=== PATIENT | male | born 1960 | race Caucasian/White ===

== ENCOUNTER 2020-07-05 12:47 | Observation (INO) | payer OTHER ==
[~2020-07-05] VITALS: Ht 190.5 cm; Wt 163.3 kg
[2020-07-05] MEDS ORDERED: AMLO10 PO (13:21)
[2020-07-05] MEDS ORDERED: Hytrin2 MG PO (13:21)
[2020-07-05] MEDS ORDERED: LEVSOD75 PO (13:22)
[2020-07-05] MEDS ORDERED: TRAZ100 PO (13:22)
[2020-07-05] MEDS ORDERED: ALLO100 PO (13:22)
[2020-07-05] MEDS ORDERED: GABA100 PO (13:23)
[2020-07-05] MEDS ORDERED: METO25ER PO (13:23)
[2020-07-05] MEDS ORDERED: ASMANEX HFA13 G4 INH (13:23)
[2020-07-05] MEDS ORDERED: STELARA90 MG/1 ML SC (13:24)
[2020-07-05] MEDS ORDERED: AMITRIPTYLINE100 MG PO (13:24)
[2020-07-05] MEDS ORDERED: HYDROCORTISONE30 GM PR (13:26)
[2020-07-05] MEDS ORDERED: Dicyclomine HCl10 MG PO (13:26)
[2020-07-05] MEDS ORDERED: ALBU90OI INH (13:27)
[2020-07-05] MEDS ORDERED: KETOCONAZOLE 2%30 GM TOP (13:27)
[2020-07-05 13:49] LABS: BASOPHILS ABSOLUTE AUTO 0.04 K/mm3 (0.00-0.23); BASOPHILS PERCENT AUTO 1 % (0-2); EOSINOPHILS ABSOLUTE AUTO 0.18 K/mm3 (0.00-0.68); EOSINOPHILS PERCENT AUTO 2 % (0-6); Hematocrit 51.3 % (37.0-53.0); IMMATURE GRAN ABSOLUTE AUTO 0.01 K/mm3 (0.00-0.10); IMMATURE GRAN PERCENT AUTO 0 % (0-1); LYMPHOCYTES ABSOLUTE AUTO 2.88 K/mm3 (0.84-5.20); LYMPHOCYTES PERCENT AUTO 37 % (21-46); MONOCYTES ABSOLUTE AUTO 0.73 K/mm3 (0.16-1.47); MONOCYTES PERCENT AUTO 9 % (4-13); Mean Corpuscular HGB 30.5 pg (26.0-34.0); Mean Corpuscular HGB Conc 33.1 g/dL (31.5-36.5); Mean Corpuscular Volume 92 fL (80-100); Mean Platelet Volume 9.1 fL (9.1-12.4); NEUTROPHILS ABSOLUTE AUTO 3.98 K/mm3 (1.96-9.15); NEUTROPHILS PERCENT AUTO 51 % (41-73); Platelet Count 235 K/mm3 (150-400); RDW Coefficient Variation 14.6 % (11.7-14.2); RDW Standard Deviation 49.5 fL (35.1-46.3); Red Blood Cell Count 5.57 M/mm3 (4.30-5.90); White Blood Cell Count 7.82 K/mm3 (4.00-11.30)
[2020-07-05 14:03] LABS: Alanine Aminotransfer (ALT/SGP 46 U/L (12-78); Albumin/Globulin Ratio 0.7 (0.8-1.8); Alk Phos 81 U/L (50-136); Anion Gap 6 mmol/L (6-16); Aspartate Aminotrans (AST/SGOT 32 U/L (12-37); Bilirubin, Total 0.6 mg/dL (0.1-1.0); Blood Urea Nitrogen 14 mg/dL (8-24); Bun/Creatinine Ratio 15.4 (12.0-20.0); CO2, Blood 28 mmol/L (21-32); Calcium, Blood 8.9 mg/dL (8.5-10.1); Chloride, Blood 104 mmol/L (98-108); Creatinine, Blood 0.91 mg/dL (0.60-1.20); Globulin, Blood 4.2 g/dL (2.2-4.0); Glomerular Filtration Rate >60 (60-); Glucose, Blood 74 mg/dL (70-99); Potassium, Blood 4.1 mmol/L (3.5-5.5); Sodium, Blood 138 mmol/L (136-145); Total Protein, Blood 7.2 g/dL (6.4-8.2)
[2020-07-05] MEDS ORDERED: TIZA4 PO (15:15)
[2020-07-05] MEDS ORDERED: ARTIFICIAL SALIVA PO (15:16)
--- NOTE | 2020-07-05 18:19 | NUR ---
SHIFT SUMMARY PATIENT ADMITTED FROM THE ER LATE THIS EVENING. PATIENT ALERT AND ORIENTED UPON ARRIVAL. PATIENT UP INDEPENDENTLY FROM THE GURNEY TO THE BED. PATIENT HAD 1 BM SHORTLY AFTER ARRIVAL TO THE UNIT. BM CONTAINED APPROXIMATELY 30 ML OF BLOOD. PATIENT ORIENTED TO THE ROOM, ADMISSION ASSESSMENT COMPLETE. PATIENT PROVIDED WITH DINNER, CURRENTLY SITTING UP IN BED EATING.
[2020-07-05 18:34] LABS: C DIFFICILE DNA Formed (Negative)
--- NOTE | 2020-07-05 23:06 | NUR ---
AWAKE AT SHIFT COMMENCE. VOICED PAIN AND TYLENOL WASNT EFFECTIVE, LEVEL DESIGNER NOTIFIED AND ULTRAM ORDERED AND GIVEN. RESTING QUIETLY AT THIS TIME. CALL LIGHT IN REACH. IVF INFUSING - SEE MAR FOR DETAILS.
--- NOTE | 2020-07-06 03:25 | NUR ---
SHIFT SUMMARY AWAKE AT INTERVALS WITH ABD DISCOMFORT. ANALGESICS ADMINISTERED - SEE MAR FOR DETAILS. IVF INFUSING. HAD 2 FORMED STOOLS, NOTE APPARENT BLOOD ON THEM. ISOLATION PRECAUTIONS MAINTAINED UNTIL C DIFF RULED OUT. CURRENTLY RESTING QUIETLY. CALL LIGHT IN REACH
[2020-07-06 05:17] LABS: BASOPHILS ABSOLUTE AUTO 0.01 K/mm3 (0.00-0.23); BASOPHILS PERCENT AUTO 0 % (0-2); EOSINOPHILS PERCENT AUTO 0 % (0-6); Hematocrit 49.9 % (37.0-53.0); Hemoglobin 16.9 g/dL (13.5-17.5); IMMATURE GRAN ABSOLUTE AUTO 0.01 K/mm3 (0.00-0.10); IMMATURE GRAN PERCENT AUTO 0 % (0-1); LYMPHOCYTES ABSOLUTE AUTO 0.88 K/mm3 (0.84-5.20); LYMPHOCYTES PERCENT AUTO 12 % (21-46); MONOCYTES ABSOLUTE AUTO 0.09 K/mm3 (0.16-1.47); MONOCYTES PERCENT AUTO 1 % (4-13); Mean Corpuscular HGB 30.6 pg (26.0-34.0); Mean Corpuscular HGB Conc 33.9 g/dL (31.5-36.5); Mean Corpuscular Volume 90 fL (80-100); Mean Platelet Volume 9.1 fL (9.1-12.4); NEUTROPHILS ABSOLUTE AUTO 6.21 K/mm3 (1.96-9.15); NEUTROPHILS PERCENT AUTO 86 % (41-73); Platelet Count 255 K/mm3 (150-400); RDW Coefficient Variation 14.3 % (11.7-14.2); RDW Standard Deviation 47.6 fL (35.1-46.3); Red Blood Cell Count 5.53 M/mm3 (4.30-5.90)
[2020-07-06 05:33] LABS: Anion Gap 7 mmol/L (6-16); Blood Urea Nitrogen 11 mg/dL (8-24); Bun/Creatinine Ratio 14.3 (12.0-20.0); CO2, Blood 25 mmol/L (21-32); Calcium, Blood 8.6 mg/dL (8.5-10.1); Chloride, Blood 107 mmol/L (98-108); Creatinine, Blood 0.77 mg/dL (0.60-1.20); Glomerular Filtration Rate >60 (60-); Glucose, Blood 131 mg/dL (70-99); Potassium, Blood 3.9 mmol/L (3.5-5.5); Sodium, Blood 139 mmol/L (136-145)
--- NOTE | 2020-07-06 08:34 | NUR ---
CALLED DR SANTOS- PT STOOLS HAVE ALL BEEN FORMED. CALLED DR SANTOS ORDER RECIEVED TO DC R/O C-DIFF. PT BECOMES TERRIBLY ILL WHEN HE HAS GOLYTELY WILL CONTACT DR RAI FOR ALTERNATE ORDER.
--- NOTE | 2020-07-06 08:38 | NUR ---
CALLED DR RAI ABOUT BOWEL PREP LEFT MESSAGE AWAITING A CALL BACK.
--- NOTE | 2020-07-06 08:58 | NUR ---
CALLED DAY SURGERY RN, DR RAI IN A PROCEDURE WHEN HE IS DONE SHE WILL UPDATE HIM ON THE PT INABILITY TO TAKE GOLYTELY, AND THE NEED FOR ALTERNATE BOWEL PREP.
--- NOTE | 2020-07-06 09:03 | NUR ---
RECIEVED A CALL FROM DR RAI- RUPA FOR SUREPREP PLACED, CALLED [facility] KASANDRA NOT READY YET. WILL ADMINISTER ONCE VERIFIED AND AVAILABLE.
--- NOTE | 2020-07-06 09:07 | NUR ---
CALLED DR [facility].
[2020-07-06 12:51] LABS: Influenza A, PCR NEGATIVE (NEGATIVE); Influenza B, PCR NEGATIVE (NEGATIVE); Resp Syncytial Virus, PCR NEGATIVE (NEGATIVE); SARS-Cov-2 (COVID-19) PCR, MMC NEGATIVE (NEGATIVE)
--- NOTE | 2020-07-06 15:41 | NUR ---
REPORT FROM [facility] RN ROOM 359. GAVE PT ENEMA PER DR RAI ORDER.
--- NOTE | 2020-07-06 16:18 | NUR ---
PT TRANSFERED FROM FLOOR TO [facility] VIA [facility]. History, Chart, Medications and Allergies reviewed before start of procedure. Lungs clear T/O to Auscultation. Patient confirms NPO status and agrees with scheduled surgery. Pre-Op teaching done. Pt verbalizes understanding.
--- NOTE | 2020-07-06 16:32 | NUR ---
07/06/20 1632 Ophelia Andrew MONITOR INTACT WITH CONTINUOUS PULSE OXIMETRY AND INTERMITTENT BP.
[2020-07-06] MEDS ORDERED: MESALAMINE4 GM/60 M2 PR (18:33)
[2020-07-06] MEDS ORDERED: PRED20 PO (18:33)
--- NOTE | 2020-07-06 19:31 | NUR ---
DISCHARGE NOTE- PT WAS GIVEN VERBAL AND WRITTEN DISCHARGE INSTRUCTIONS AND ACKNOWLEDGED UNDERSTANDING OF THEM. IV DC'D PRIOR TO DISCHARGE, PT SISTER PICKED HIM UP TO DRIVE HIM HOME. NO FURTHER QUESTIONS AT THE TIME OF DISCHARGE. PT WAS ESCORTED OUT VIA WC BY STAFF.
== END 2020-07-06 19:22 | disposition home or self-care (01) ==
LOC: ER 12:47 → ERHOLD 12:48 → MEDS 12:48
PROVIDERS: Emergency Medicine; Family Medicine; Internal Medicine; Internal Medicine Gastroenterology; ADMIT Internal Medicine
DX: K51.211 Ulcerative (chronic) proctitis with rectal bleeding (principal); K64.1 Second degree hemorrhoids; I10 Essential (primary) hypertension; M10.9 Gout, unspecified; J45.909 Unspecified asthma, uncomplicated; E03.9 Hypothyroidism, unspecified; E66.01 Morbid (severe) obesity due to excess calories; Z87.891 Personal history of nicotine dependence; Z88.8 Allergy status to other drugs, medicaments and biological substances; Z20.822 Contact with and (suspected) exposure to COVID-19
CPT/HCPCS: 0241U; 36415; 80048; 80053; 85025; 86850; 86900; 86901; 88305; 93005; 93010; 94640; 94760; 96372-59; 96374; 96375; 96376; 99285-25; A9270; G0378; J1650; J1720; J2704; J2930; J3010; J3480; J7120